=== PATIENT | female | born 1945 | race Native Hawaiian/Other Pacific Islander ===

== ENCOUNTER 2018-11-25 13:41 | Outpatient (CLI) | payer OTHER ==
[2018-11-25 14:03] LABS: PLATELET COUNT 300 K/uL (152-353)
[2018-11-25 14:21] LABS: POTASSIUM 4.1 mmol/L (3.6-5.2)
== END 2018-11-25 23:12 | disposition home or self-care (01) ==
LOC: LAB 13:41
PROVIDERS: Nurse Practitioner Family
DX: Z00.00 Encounter for general adult medical examination without abnormal findings (principal); Z79.899 Other long term (current) drug therapy; E03.8 Other specified hypothyroidism; I10 Essential (primary) hypertension; E11.9 Type 2 diabetes mellitus without complications; J45.909 Unspecified asthma, uncomplicated
CPT/HCPCS: 80053; 80061; 83036; 84439; 84443; 85027